=== PATIENT | female | born 1955 | race Two or more races ===

== ENCOUNTER 2018-01-20 13:33 | Outpatient (CLI) | payer OTHER ==
[~2018-01-20 13:33] MED LIST: APRESOLINE; AVAPRO300 MG; HYDROCHLOROTHIA25 GM; METOPROLOL SUC200 MG; XANAX0.25 MG
== END 2018-01-20 13:44 | disposition home or self-care (01) ==
LOC: SONOGRAMA 13:33
DX: R31.29 Other microscopic hematuria (principal)

== ENCOUNTER 2018-07-18 12:59 | Outpatient (CLI) | payer OTHER | END 2018-07-18 13:03 | disposition home or self-care (01) | LOC: SONOGRAMA 12:59 | DX: E04.8 Other specified nontoxic goiter (principal) ==

== ENCOUNTER 2018-08-15 10:03 | Inpatient (IN) | payer OTHER ==
[~2018-08-15] VITALS: Ht 175.3 cm; Wt 80.7 kg
[2018-08-15] MEDS ORDERED: METOPROLOL SUC100 MG PO (10:44)
[2018-08-19] MEDS ORDERED: FLAGYL500MG PO (16:48)
[2018-08-19] MEDS ORDERED: AMOX-CLAV 875-1 EACH PO (16:48)
== END 2018-08-19 16:50 | disposition home or self-care (01) | DRG 378 ==
LOC: ER 10:03 → MEDJ 20:48 → SEC-K 20:48 → MEDJ 08-16 00:04
PROC: BW25Y0Z Computerized Tomography (CT Scan) of Chest, Abdomen and Pelvis using Other Contrast, Unenhanced and Enhanced (ICD-10-PCS; principal; 2018-08-15)
DX: K57.33 Diverticulitis of large intestine without perforation or abscess with bleeding (principal); K51.511 Left sided colitis with rectal bleeding; I10 Essential (primary) hypertension; F41.8 Other specified anxiety disorders

== ENCOUNTER 2018-10-27 14:43 | Outpatient (CLI) | payer OTHER ==
[~2018-10-27 14:43] MED LIST changes: +AMOX-CLAV 875-1 EACH PO; +FLAGYL500MG PO; +METOPROLOL SUC100 MG PO
== END 2018-10-27 15:00 | disposition home or self-care (01) ==
LOC: LAB 14:43
DX: N20.0 Calculus of kidney (principal)

== ENCOUNTER 2018-11-21 13:38 | Outpatient (CLI) | payer OTHER | END 2018-11-21 13:52 | disposition home or self-care (01) | LOC: MAMO-SONO 13:38 | DX: Z12.31 Encounter for screening mammogram for malignant neoplasm of breast (principal); Z87.898 Personal history of other specified conditions; N64.59 Other signs and symptoms in breast ==

== ENCOUNTER 2018-12-02 09:22 | Day surgery (SDC) | payer OTHER | END 2018-12-02 14:00 | disposition home or self-care (01) | LOC: AMB-ENDOS 09:22 | DX: K64.2 Third degree hemorrhoids (principal) ==

== ENCOUNTER 2019-01-11 06:10 | Day surgery (SDC) | payer OTHER ==
[~2019-01-11 06:10] MED LIST changes: +SYNTH PO; +VALSART PO; +XANAX0.25 MG PO; +[UNRECOGNIZED DRUG - OTHER] PO
== END 2019-01-11 16:05 | disposition home or self-care (01) ==
LOC: CIR.AMB 06:10
DX: K64.8 Other hemorrhoids (principal)

== ENCOUNTER 2019-02-21 13:20 | Outpatient (CLI) | payer OTHER | END 2019-02-21 13:24 | disposition home or self-care (01) | LOC: MRI 13:20 | DX: M51.26 Other intervertebral disc displacement, lumbar region (principal) | CPT/HCPCS: 72148 ==

== ENCOUNTER 2019-11-17 13:08 | Outpatient (CLI) | payer OTHER | END 2019-11-17 14:15 | disposition home or self-care (01) | LOC: RAD 13:08 | DX: M10.071 Idiopathic gout, right ankle and foot (principal); M10.072 Idiopathic gout, left ankle and foot ==

== ENCOUNTER 2020-04-03 14:06 | Outpatient (CLI) | payer OTHER | END 2020-04-03 14:12 | disposition home or self-care (01) | LOC: MAMO-SONO 14:06 | PROVIDERS: ATTEND Specialist | DX: Z12.31 Encounter for screening mammogram for malignant neoplasm of breast (principal) ==

== ENCOUNTER 2020-04-10 13:10 | Outpatient (CLI) | payer OTHER | END 2020-04-10 13:21 | disposition home or self-care (01) | LOC: TOM 13:10 | PROVIDERS: ATTEND Specialist | DX: R51 Headache (principal) ==

== ENCOUNTER 2021-07-10 11:07 | Outpatient (CLI) | payer OTHER | END 2021-07-10 11:23 | disposition home or self-care (01) | LOC: MAMO-SONO 11:07 | PROVIDERS: ATTEND Specialist | DX: R92.0 Mammographic microcalcification found on diagnostic imaging of breast (principal); Z12.31 Encounter for screening mammogram for malignant neoplasm of breast; N64.89 Other specified disorders of breast; E04.1 Nontoxic single thyroid nodule ==

== ENCOUNTER 2021-11-26 12:48 | Outpatient (CLI) | payer OTHER | END 2021-11-26 12:51 | disposition home or self-care (01) | LOC: SONOGRAMA 12:48 | PROVIDERS: ATTEND Specialist | DX: E27.49 Other adrenocortical insufficiency (principal) ==

== ENCOUNTER 2022-10-19 09:08 | Outpatient (CLI) | payer OTHER | END 2022-10-19 09:40 | disposition home or self-care (01) | LOC: TOM 09:08 | PROVIDERS: ATTEND Internal Medicine Gastroenterology | DX: R97.0 Elevated carcinoembryonic antigen [CEA] (principal) ==

== ENCOUNTER → 2022-11-17 12:43 | Outpatient (CLI) | payer OTHER | END | disposition home or self-care (01) | LOC: LAB 12:43 | PROVIDERS: ATTEND Internal Medicine Geriatric Medicine | DX: D68.8 Other specified coagulation defects (principal) ==

== ENCOUNTER 2023-04-05 13:35 | Outpatient (CLI) | payer OTHER | END 2023-04-05 13:36 | disposition home or self-care (01) | LOC: NUCLEAR 13:35 | PROVIDERS: ATTEND Internal Medicine Hematology & Oncology | DX: I70.213 Atherosclerosis of native arteries of extremities with intermittent claudication, bilateral legs (principal) ==

== ENCOUNTER 2023-05-19 08:51 | Outpatient (CLI) | payer OTHER | END 2023-05-19 08:52 | disposition home or self-care (01) | LOC: LAB 08:51 | PROVIDERS: ATTEND Internal Medicine Hematology & Oncology | DX: D50.8 Other iron deficiency anemias (principal); R79.9 Abnormal finding of blood chemistry, unspecified; I10 Essential (primary) hypertension; R74.02 Elevation of levels of lactic acid dehydrogenase [LDH]; K76.89 Other specified diseases of liver; D68.8 Other specified coagulation defects; D69.1 Qualitative platelet defects; D68.312 Antiphospholipid antibody with hemorrhagic disorder; C50.919 Malignant neoplasm of unspecified site of unspecified female breast; R97.8 Other abnormal tumor markers; C25.9 Malignant neoplasm of pancreas, unspecified; C56.9 Malignant neoplasm of unspecified ovary; R97.1 Elevated cancer antigen 125 [CA 125]; R97.0 Elevated carcinoembryonic antigen [CEA]; E89.0 Postprocedural hypothyroidism; E06.3 Autoimmune thyroiditis; F41.3 Other mixed anxiety disorders; F41.1 Generalized anxiety disorder; I70.213 Atherosclerosis of native arteries of extremities with intermittent claudication, bilateral legs ==

== ENCOUNTER 2023-08-25 12:11 | Outpatient (CLI) | payer OTHER | END 2023-08-25 12:20 | disposition home or self-care (01) | LOC: SONOGRAMA 12:11 | PROVIDERS: ATTEND Internal Medicine Endocrinology, Diabetes & Metabolism | DX: E89.0 Postprocedural hypothyroidism (principal); E04.8 Other specified nontoxic goiter; Z88.6 Allergy status to analgesic agent ==

== ENCOUNTER 2023-08-30 09:24 | Outpatient (CLI) | payer OTHER ==
[2023-08-30 10:10] LABS: PLATELET COUNT 305 K/uL (150-450); RED BLOOD COUNT 4.59 M/uL (4.00-6.00); RED CELL DISTRIBUTION WIDTH 13.6 % (11.5-14.5)
[2023-08-30 10:13] LABS: HEMOGLOBIN 15.8 g/dL (12.0-15.00); MEAN CORPUSCULAR HEMOGLOBIN 34.4 pg (27.00-32.0)
[2023-08-30 10:37] LABS: BILIRUBIN TOTAL 0.83 mg/dL (0.3-1.2); CALCIUM 9.8 mg/dL (8.5-10.1); CREATININE SERUM 1.57 mg/dL (0.55-1.02); GFR 32.86; GLOBULINA 4.4 G/DL (2.4-3.5); POTASSIUM 3.27 mEq/L (3.5-5.1); TOTAL PROTEIN 8.4 gm/dL (6.4-8.2)
[2023-08-30 13:44] LABS: FOLIC ACID 13.61 ng/ml (4.78-20)
[2023-08-30 14:00] LABS: MANUAL PLATELET COUNT 358
[2023-08-30 14:01] LABS: PLATELET ESTIMATE NORMAL (NORMAL)
== END 2023-08-30 09:25 | disposition home or self-care (01) ==
LOC: LAB 09:24
PROVIDERS: ATTEND Internal Medicine Hematology & Oncology
DX: D50.8 Other iron deficiency anemias (principal); R79.9 Abnormal finding of blood chemistry, unspecified; I10 Essential (primary) hypertension; R74.02 Elevation of levels of lactic acid dehydrogenase [LDH]; K76.89 Other specified diseases of liver; D51.8 Other vitamin B12 deficiency anemias; R97.0 Elevated carcinoembryonic antigen [CEA]; D68.62 Lupus anticoagulant syndrome; E89.0 Postprocedural hypothyroidism; E06.3 Autoimmune thyroiditis; F41.3 Other mixed anxiety disorders; F41.1 Generalized anxiety disorder; I70.213 Atherosclerosis of native arteries of extremities with intermittent claudication, bilateral legs; Z88.6 Allergy status to analgesic agent

== ENCOUNTER 2023-12-30 08:49 | Outpatient (CLI) | payer OTHER ==
[2023-12-30 10:36] LABS: HEMATOCRIT 42.1 % (36.0-45.00); HEMOGLOBIN 14.5 g/dL (12.0-15.00); MEAN CELL VOLUME 95.7 fL (80.00-100.00); MEAN CORPUSCULAR HEMOGLOBIN 32.9 pg (27.00-32.0); MEAN CORPUSCULAR HGB CONC 34.4 g/dl (32.0-36.0); PLATELET COUNT 252 K/uL (150-450); RED CELL DISTRIBUTION WIDTH 13.9 % (11.5-14.5)
[2023-12-30 11:08] LABS: BILIRUBIN TOTAL 0.44 mg/dL (0.3-1.2); CALCIUM 9.8 mg/dL (8.5-10.1); CREATININE SERUM 1.06 mg/dL (0.55-1.02); GFR 51.55; GLOBULINA 3.8 G/DL (2.4-3.5); POTASSIUM 3.79 mEq/L (3.5-5.1); TOTAL PROTEIN 7.8 gm/dL (6.4-8.2)
[2023-12-30 12:05] LABS: FOLIC ACID 4.89 ng/ml (4.78-20)
[2023-12-31 16:47] LABS: MANUAL PLATELET COUNT 520
[2023-12-31 16:49] LABS: PLATELET ESTIMATE INCREASED (NORMAL)
== END 2023-12-30 08:50 | disposition home or self-care (01) ==
LOC: LAB 08:49
PROVIDERS: ATTEND Internal Medicine Hematology & Oncology
DX: D68.62 Lupus anticoagulant syndrome (principal); I10 Essential (primary) hypertension; E89.0 Postprocedural hypothyroidism; E06.3 Autoimmune thyroiditis; F41.3 Other mixed anxiety disorders; R41.1 Anterograde amnesia; I70.213 Atherosclerosis of native arteries of extremities with intermittent claudication, bilateral legs; D50.8 Other iron deficiency anemias; R79.9 Abnormal finding of blood chemistry, unspecified; R74.02 Elevation of levels of lactic acid dehydrogenase [LDH]; K76.89 Other specified diseases of liver; R97.0 Elevated carcinoembryonic antigen [CEA]; R97.8 Other abnormal tumor markers

== ENCOUNTER 2024-05-16 08:28 | Outpatient (CLI) | payer OTHER ==
[~2024-05-16 08:28] MED LIST changes: +SYNTHROID175 MCG PO
[2024-05-16 09:24] LABS: PH,URINE 6.5 (5.0-8.0); URINE APPEARANCE Clear; URINE BILIRRUBIN Negative (NEGATIVE); URINE BLOOD Small; URINE COLOR Yellow; URINE GLUCOSE Negative (NEGATIVE); URINE KETONE Negative (NEGATIVE); URINE LEUKOCYTE Negative; URINE NITRATE Negative; URINE PROTEIN Negative (NEGATIVE); URINE UROBILINOGEN 0.2 E.U./dl
[2024-05-16 09:28] LABS: URINE EPITHELIAL CELLS 12.6 uL (0.0-38.8); URINE RBC 36.4 uL (0.0-20.8); URINE WBC 7.2 uL (0.0-23.2)
[2024-05-16 09:35] LABS: HEMATOCRIT 40.7 % (36.0-45.00); HEMOGLOBIN 14.3 g/dL (12.0-15.00); MEAN CELL VOLUME 96.7 fL (80.00-100.00); MEAN CORPUSCULAR HEMOGLOBIN 34.1 pg (27.00-32.0); MEAN CORPUSCULAR HGB CONC 35.2 g/dl (32.0-36.0); PLATELET COUNT 252 K/uL (150-450); RED BLOOD COUNT 4.21 M/uL (4.00-6.00); RED CELL DISTRIBUTION WIDTH 14.1 % (11.5-14.5)
[2024-05-16 09:45] LABS: INR 0.95; PARTIAL THROMBOPLASTIN TIME 34.8 SECONDS (22.0-34.0)
[2024-05-16 12:02] LABS: ALBUMIN 4.1 gm/dL (3.4-5.0); BILIRUBIN TOTAL 0.46 mg/dL (0.3-1.2); CALCIUM 9.4 mg/dL (8.5-10.1); CREATININE SERUM 1.01 mg/dL (0.55-1.02); GFR 54.51; GLOBULINA 3.9 G/DL (2.4-3.5); POTASSIUM 3.91 mEq/L (3.5-5.1)
== END 2024-05-16 08:29 | disposition home or self-care (01) ==
LOC: LAB 08:28
PROVIDERS: ATTEND Surgery
DX: Z03.818 Encounter for observation for suspected exposure to other biological agents ruled out (principal); Z20.822 Contact with and (suspected) exposure to COVID-19; K56.600 Partial intestinal obstruction, unspecified as to cause; K56.690 Other partial intestinal obstruction; K57.30 Diverticulosis of large intestine without perforation or abscess without bleeding; R14.0 Abdominal distension (gaseous); R10.32 Left lower quadrant pain; R97.0 Elevated carcinoembryonic antigen [CEA]

== ENCOUNTER 2024-05-16 09:21 | Outpatient (CLI) | payer OTHER | END 2024-05-16 09:34 | disposition home or self-care (01) | LOC: MRI 09:21 | PROVIDERS: ATTEND Anesthesiology | DX: M54.50 Low back pain, unspecified (principal) | CPT/HCPCS: 72148 ==

== ENCOUNTER 2024-06-16 16:02 | Inpatient (IN) | payer OTHER ==
[~2024-06-16] VITALS: Ht 175.3 cm; Wt 76.2 kg
[2024-06-16] MEDS ORDERED: FAMOtidine 10 MG/ML (4ML VIAL) IV ONE (17:15)
[2024-06-16] MEDS ORDERED: 0.9 % SODIUM CHLORIDE 1,000 ML IV ONE (17:15)
[2024-06-16] MEDS ORDERED: FAMOTIDINE/PF 20 MG/2 ML VIAL ONE (17:18)
[2024-06-16 18:13] LABS: HEMATOCRIT 36.5 % (36.0-45.00); HEMOGLOBIN 12.9 g/dL (12.0-15.00); MEAN CORPUSCULAR HGB CONC 35.4 g/dl (32.0-36.0); PLATELET COUNT 392 K/uL (150-450); RED CELL DISTRIBUTION WIDTH 14.4 % (11.5-14.5)
[2024-06-16 18:17] LABS: ABG PH 7.468 (7.35-7.45); ABG PO2 104.7 mmHg (80-100); ABG pCO2 35.7 mmHg (35-45); BICARBONATE 25.3 mmol/l (23-25); SaO2 98.4 %; Tco2 26.4 mmol/l
[2024-06-16 18:17] LABS: ERYTHROCYTE SEDIMENTATION RATE 23 mm/hr
[2024-06-16 18:43] LABS: D DIMER 4.74 MG/L; INR 1.07; PROTHROMBIN TIME 11.6 SECONDS (9.0-11.5)
[2024-06-16 18:47] LABS: PARTIAL THROMBOPLASTIN TIME 39.1 SECONDS (22.0-34.0)
[2024-06-16 18:55] LABS: ALBUMIN 3.3 gm/dL (3.4-5.0); BILIRUBIN TOTAL 0.73 mg/dL (0.3-1.2); CALCIUM 9.5 mg/dL (8.5-10.1); CREATININE SERUM 1.24 mg/dL (0.55-1.02); GFR 43.02; GLOBULINA 4.5 G/DL (2.4-3.5); POTASSIUM 4.04 mEq/L (3.5-5.1); TOTAL PROTEIN 7.8 gm/dL (6.4-8.2)
[2024-06-16 20:04] LABS: allen test SATISFACTORY; o2 21 %; puncture site RADIAL RIGHT
[2024-06-16] MEDS ORDERED: LEVOTHYROXINE SODIUM 100 MCG TABLET PO SCH (20:15)
[2024-06-16] MEDS ORDERED: LEVOTHYROXINE SODIUM 88 MCG TABLET PO SCH (20:15)
[2024-06-16 21:44] VITALS: BP 100/60; O2SAT 98
[2024-06-16 21:59] LABS: PH,URINE 5.5 (5.0-8.0); URINE APPEARANCE Clear; URINE BILIRRUBIN Negative (NEGATIVE); URINE BLOOD Negative; URINE COLOR Yellow; URINE GLUCOSE Negative (NEGATIVE); URINE KETONE Negative (NEGATIVE); URINE LEUKOCYTE Negative; URINE NITRATE Negative; URINE PROTEIN Trace (NEGATIVE); URINE UROBILINOGEN 0.2 E.U./dl
[2024-06-16 22:00] LABS: URINE BACTERIA 525.3 uL (0.0-1933); URINE EPITHELIAL CELLS 16.2 uL (0.0-38.8); URINE RBC 13.4 uL (0.0-20.8); URINE WBC 10.1 uL (0.0-23.2)
[2024-06-16 22:07] LABS: URINE CAST 0.91 uL (0.0-1.40)
[2024-06-17 01:07] VITALS: BP 141/69; O2SAT 100
[2024-06-17] MEDS ORDERED: PIPERACILLIN/TAZOBACTAM SODIUM 3.375 GM in 0.9 % SODIUM CHLORIDE 100 ML IV SCH (06:00)
[2024-06-17] MEDS ORDERED: RINGERS SOLUTION,LACTATED 500 ML IV ONE (06:30)
[2024-06-17] MEDS ORDERED: RINGERS SOLUTION,LACTATED 1,000 ML IV SCH (06:30)
[2024-06-17 08:00] VITALS: BP 70/41; O2SAT 99
[2024-06-17 08:20] LABS: HEMATOCRIT 35.2 % (36.0-45.00); HEMOGLOBIN 12.2 g/dL (12.0-15.00); MEAN CELL VOLUME 96.7 fL (80.00-100.00); MEAN CORPUSCULAR HEMOGLOBIN 33.6 pg (27.00-32.0); MEAN CORPUSCULAR HGB CONC 34.8 g/dl (32.0-36.0); PLATELET COUNT 317 K/uL (150-450); RED BLOOD COUNT 3.64 M/uL (4.00-6.00); RED CELL DISTRIBUTION WIDTH 14.3 % (11.5-14.5)
[2024-06-17 08:31] LABS: ALBUMIN 2.9 gm/dL (3.4-5.0); BILIRUBIN TOTAL 0.91 mg/dL (0.3-1.2); CREATININE SERUM 1.1 mg/dL (0.55-1.02); GFR 49.39; GLOBULINA 4.1 G/DL (2.4-3.5); POTASSIUM 3.97 mEq/L (3.5-5.1)
[2024-06-17] MEDS ORDERED: METOPROLOL SUCCINATE 100 MG TAB.SR.24H PO SCH (09:00)
[2024-06-17 10:00] VITALS: BP 120/70; O2SAT 99
[2024-06-17] MEDS ORDERED: LEVOTHYROXINE SODIUM PO NR (11:45)
[2024-06-17 16:00] VITALS: BP 123/73; O2SAT 95
[2024-06-17] MEDS ORDERED: METOPROLOL SUCCINATE 50 MG TAB.SR.24H PO SCH (17:00)
[2024-06-17] MEDS ORDERED: ENOXAPARIN SODIUM 40 MG/0.4 ML SYRINGE SUBCUTANEO STA (17:22)
[2024-06-17] MEDS ORDERED: LEVALBUTEROL HCL 0.63 MG/3 ML SOLUTION IH SCH (18:00)
[2024-06-17 20:00] VITALS: BP 129/77; O2SAT 93
[2024-06-17 20:09] VITALS: BP 148/74; O2SAT 95
[2024-06-17] MEDS ORDERED: VANCOMYCIN HCL 1,000 MG VIAL IV SCH (21:00)
[2024-06-18 00:49] VITALS: BP 134/68; O2SAT 97
[2024-06-18] MEDS ORDERED: LEVOTHYROXINE SODIUM PO SCH (06:00)
[2024-06-18] MEDS ORDERED: PIPERACILLIN/TAZOBACTAM SODIUM 3.375 GM VIAL IV ONE (07:48)
[2024-06-18 08:00] VITALS: BP 119/67; O2SAT 94
[2024-06-18] MEDS ORDERED: SODIUM CL 0.9% 100 ML IV.SOLN IV ONE (08:21)
[2024-06-18 08:28] LABS: HEMOGLOBIN 10.9 g/dL (12.0-15.00); MEAN CELL VOLUME 97.6 fL (80.00-100.00); MEAN CORPUSCULAR HEMOGLOBIN 33.7 pg (27.00-32.0); MEAN CORPUSCULAR HGB CONC 34.5 g/dl (32.0-36.0); PLATELET COUNT 262 K/uL (150-450); RED BLOOD COUNT 3.24 M/uL (4.00-6.00); RED CELL DISTRIBUTION WIDTH 13.9 % (11.5-14.5)
[2024-06-18 09:29] LABS: ALBUMIN 2.6 gm/dL (3.4-5.0); BILIRUBIN TOTAL 1.1 mg/dL (0.3-1.2); CALCIUM 8.1 mg/dL (8.5-10.1); CREATININE SERUM 0.9 mg/dL (0.55-1.02); GFR 62.26; GLOBULINA 3.7 G/DL (2.4-3.5); MAGNESIUM 1.9 mg/dL (1.8-2.4); PHOSPHOROUS 3.1 mg/dL (2.5-4.9); POTASSIUM 3.41 mEq/L (3.5-5.1); TOTAL PROTEIN 6.3 gm/dL (6.4-8.2)
[2024-06-18 09:31] LABS: TSH 8.14 uIU/mL (0.358-3.74)
[2024-06-18] MEDS ORDERED: POTASSIUM CHLORIDE 20MEQ/100ML H2O PB IV NR (13:53)
[2024-06-18 16:00] VITALS: BP 123/70; O2SAT 96
[2024-06-18] MEDS ORDERED: ENOXAPARIN SODIUM 40 MG/0.4 ML SYRINGE SUBCUTANEO SCH (17:00)
[2024-06-19 00:23] VITALS: BP 133/79; O2SAT 95
[2024-06-19] MEDS ORDERED: LEVOTHYROXINE SODIUM 200 MCG TABLET PO SCH (06:00)
[2024-06-19] MEDS ORDERED: SYNTHROID 200 MCG PO SCH (06:00)
[2024-06-19 08:00] VITALS: BP 91/68; O2SAT 97
[2024-06-19] MEDS ORDERED: VITAMIN B COMPLEX 1 EACH PO SCH (09:00)
[2024-06-19] MEDS ORDERED: Cyanocobalamin/Mecobalamin 1 TAB.SL SL SCH (09:00)
[2024-06-19] MEDS ORDERED: MULTIVIT-MIN/IRON FUM/FOLIC AC 1 TAB TABLET PO SCH (09:00)
[2024-06-19 16:43] VITALS: BP 143/64; O2SAT 97
[2024-06-20 01:30] VITALS: BP 130/70; O2SAT 96
[2024-06-20 07:53] VITALS: BP 160/75; O2SAT 95
[2024-06-20 08:04] LABS: HEMATOCRIT 30.7 % (36.0-45.00); HEMOGLOBIN 10.6 g/dL (12.0-15.00); MEAN CELL VOLUME 96.1 fL (80.00-100.00); MEAN CORPUSCULAR HEMOGLOBIN 33.1 pg (27.00-32.0); MEAN CORPUSCULAR HGB CONC 34.4 g/dl (32.0-36.0); PLATELET COUNT 259 K/uL (150-450)
[2024-06-20] MEDS ORDERED: GABAPENTIN 100 MG CAPSULE PO SCH (09:00)
[2024-06-20 09:05] LABS: CALCIUM 8.5 mg/dL (8.5-10.1); CREATININE SERUM 0.93 mg/dL (0.55-1.02); GFR 59.95; MAGNESIUM 1.7 mg/dL (1.8-2.4); PHOSPHOROUS 3.3 mg/dL (2.5-4.9); POTASSIUM 3.41 mEq/L (3.5-5.1)
[2024-06-20 09:09] LABS: FERRITIN 313.1 NG/ML (8-252)
[2024-06-20 11:18] LABS: FOLIC ACID 4.93 ng/ml (4.78-20)
[2024-06-20] MEDS ORDERED: DEXTROSE 5 % IN WATER 1,000 ML IV SCH (11:45)
[2024-06-20] MEDS ORDERED: POTASSIUM CHLORIDE 20MEQ/100ML H2O PB IV NR (11:48)
[2024-06-20] MEDS ORDERED: MAGNESIUM SULFATE IN WATER 50 ML IV NR (11:48)
[2024-06-20] MEDS ORDERED: METOPROLOL SUCCINATE 100 MG TAB.SR.24H PO SCH (12:00)
[2024-06-20] MEDS ORDERED: CIPROFLOXACIN IN 5 % DEXTROSE 400 MG/200 ML PIGGYBAG IV SCH (13:00)
[2024-06-20] MEDS ORDERED: DIPHENHYDRAMINE HCL 50 MG/ML VIAL 1ML IV STA (13:49)
[2024-06-20 16:35] VITALS: BP 159/71; O2SAT 98
[2024-06-20] MEDS ORDERED: METOPROLOL SUCCINATE 50 MG TAB.SR.24H PO SCH (17:00)
[2024-06-20] MEDS ORDERED: CEFEPIME HCL 2,000 MG in 0.9 % SODIUM CHLORIDE 100 ML IV SCH (21:00)
[2024-06-21] VITALS: BP 150/84; O2SAT 96
[2024-06-21 08:00] VITALS: BP 140/74; O2SAT 96
[2024-06-21] MEDS ORDERED: levoFLOXacin 750 MG TABLET PO SCH (12:37)
[2024-06-21 16:43] VITALS: BP 149/75; O2SAT 98
[2024-06-22] VITALS: BP 158/84; O2SAT 96
[2024-06-22 08:00] VITALS: BP 124/70; O2SAT 97
[2024-06-22] MEDS ORDERED: SYNTHROID200 MCG PO (13:45)
[2024-06-22] MEDS ORDERED: ABANEU-SL TABL1 EACH SL (13:45)
[2024-06-22] MEDS ORDERED: TOPROL XL100 M1 PO (13:45)
[2024-06-22] MEDS ORDERED: LEVOFLOXACIN750 MG PO (13:45)
[2024-06-22] MEDS ORDERED: TOPROL XL50 M1 PO (13:45)
[2024-06-22] MEDS ORDERED: MULTIVITAMIN-M1 EACH PO (13:45)
== END 2024-06-22 15:13 | disposition home or self-care (01) | DRG 872 ==
LOC: ER 16:03 → SURH 21:01
PROVIDERS: General Practice; Internal Medicine Endocrinology, Diabetes & Metabolism; Internal Medicine Geriatric Medicine; ADMIT Surgery; ATTEND Surgery
PROC: BW28ZZZ Computerized Tomography (CT Scan) of Head (ICD-10-PCS; principal; 2024-06-16)
PROC: BW21YZZ Computerized Tomography (CT Scan) of Abdomen and Pelvis using Other Contrast (ICD-10-PCS; 2024-06-16)
PROC: BW24ZZZ Computerized Tomography (CT Scan) of Chest and Abdomen (ICD-10-PCS; 2024-06-17)
PROC: 02HV33Z Insertion of Infusion Device into Superior Vena Cava, Percutaneous Approach (ICD-10-PCS; 2024-06-17)
PROC: BW24YZZ Computerized Tomography (CT Scan) of Chest and Abdomen using Other Contrast (ICD-10-PCS; 2024-06-18)
DX: A41.9 Sepsis, unspecified organism (principal); D68.62 Lupus anticoagulant syndrome; J20.9 Acute bronchitis, unspecified; E86.0 Dehydration; I95.9 Hypotension, unspecified; D64.9 Anemia, unspecified; I10 Essential (primary) hypertension; E03.9 Hypothyroidism, unspecified; M60.9 Myositis, unspecified; F17.210 Nicotine dependence, cigarettes, uncomplicated

== ENCOUNTER 2024-09-12 14:40 | Outpatient (CLI) | payer OTHER ==
[~2024-09-12 14:40] MED LIST changes: +ABANEU-SL TABL1 EACH SL; +LEVOFLOXACIN750 MG PO; +MULTIVITAMIN-M1 EACH PO; +SYNTHROID200 MCG PO; +TOPROL XL100 M1 PO; +TOPROL XL50 M1 PO
== END 2024-09-12 14:48 | disposition home or self-care (01) ==
LOC: RAD 14:40
PROVIDERS: ATTEND Physical Medicine & Rehabilitation
DX: M79.671 Pain in right foot (principal); M79.672 Pain in left foot

== ENCOUNTER 2024-09-18 13:05 | Outpatient (CLI) | payer OTHER | END 2024-09-18 13:12 | disposition home or self-care (01) | LOC: MAMO-SONO 13:05 | PROVIDERS: ATTEND Internal Medicine Geriatric Medicine | DX: Z12.31 Encounter for screening mammogram for malignant neoplasm of breast (principal); N63.0 Unspecified lump in unspecified breast; N64.4 Mastodynia; N60.12 Diffuse cystic mastopathy of left breast; N60.11 Diffuse cystic mastopathy of right breast ==

== ENCOUNTER 2024-12-13 13:04 | Outpatient (CLI) | payer OTHER ==
[2024-12-13] MEDS ORDERED: COZAAR50 MG PO (14:26)
== END 2024-12-13 13:05 | disposition home or self-care (01) ==
LOC: NUCLEAR 13:04
PROVIDERS: ATTEND Internal Medicine Endocrinology, Diabetes & Metabolism
DX: M81.0 Age-related osteoporosis without current pathological fracture (principal)

== ENCOUNTER 2024-12-13 13:56 | Emergency (ER) | payer OTHER ==
[~2024-12-13] VITALS: Ht 170.2 cm; Wt 73.5 kg
[2024-12-13] MEDS ORDERED: COZAAR50 MG PO (14:26)
[2024-12-13] MEDS ORDERED: LEVALBUTEROL HCL 1.25 MG/3 ML SOLUTION IH STA (15:13)
[2024-12-13] MEDS ORDERED: BUDESONIDE 0.5 MG/2 ML AMPUL.NEB IH STA (15:14)
[2024-12-13] MEDS ORDERED: HYDROCODONE/CHLORPHEN P-STIREX 5 ML ML PO STA (15:15)
[2024-12-13] MEDS ORDERED: METHYLPREDNISOLONE SOD SUCC 125 MG VIAL IV STA (15:16)
[2024-12-13 16:10] LABS: HEMATOCRIT 43.4 % (36.0-45.00); MEAN CORPUSCULAR HEMOGLOBIN 33.1 pg (27.00-32.0); MEAN CORPUSCULAR HGB CONC 34.5 g/dl (32.0-36.0); PLATELET COUNT 273 K/uL (150-450); RED BLOOD COUNT 4.52 M/uL (4.00-6.00); RED CELL DISTRIBUTION WIDTH 14.6 % (11.5-14.5)
== END 2024-12-13 18:15 | disposition home or self-care (01) ==
LOC: ER 13:59
PROVIDERS: General Practice
DX: R53.81 Other malaise (principal); R05.9 Cough, unspecified; Z20.822 Contact with and (suspected) exposure to COVID-19; E03.8 Other specified hypothyroidism; Z88.6 Allergy status to analgesic agent
CPT/HCPCS: 36415; 71046; 94640; 96365; 99283; J3490

== ENCOUNTER 2024-12-23 05:07 | Emergency (ER) | payer OTHER ==
[~2024-12-23] VITALS: Ht 170.2 cm; Wt 75.3 kg
[~2024-12-23 05:07] MED LIST changes: +COZAAR50 MG PO
[2024-12-23] MEDS ORDERED: FLUMAZENIL 0.5 MG/5 ML ML IV STA (06:00)
[2024-12-23 06:30] LABS: HEMATOCRIT 41.7 % (36.0-45.00); HEMOGLOBIN 14.2 g/dL (12.0-15.00); MEAN CELL VOLUME 97.4 fL (80.00-100.00); MEAN CORPUSCULAR HEMOGLOBIN 33.3 pg (27.00-32.0); MEAN CORPUSCULAR HGB CONC 34.1 g/dl (32.0-36.0); PLATELET COUNT 247 K/uL (150-450); RED BLOOD COUNT 4.28 M/uL (4.00-6.00); RED CELL DISTRIBUTION WIDTH 15.1 % (11.5-14.5)
[2024-12-23] MEDS ORDERED: IPRATROPIUM/ALBUTEROL SULFATE 3 ML AMPUL.NEB IH STA (06:51)
[2024-12-23] MEDS ORDERED: CEFTRIAXONE SODIUM 2,000 MG VIAL IV STA (07:19)
== END 2024-12-23 08:32 | disposition home or self-care (01) ==
LOC: ER 05:07
DX: R53.81 Other malaise (principal); J45.991 Cough variant asthma; J06.9 Acute upper respiratory infection, unspecified; Z20.822 Contact with and (suspected) exposure to COVID-19; I10 Essential (primary) hypertension; E11.9 Type 2 diabetes mellitus without complications; Z88.6 Allergy status to analgesic agent
CPT/HCPCS: 36415; 71045; 94640; 96365; 99283; J0696; J3490

== ENCOUNTER 2025-03-09 12:06 | Outpatient (CLI) | payer OTHER | END 2025-03-09 12:25 | disposition home or self-care (01) | LOC: MRI 12:06 | PROVIDERS: ATTEND Neuromusculoskeletal Medicine & OMM | DX: I72.9 Aneurysm of unspecified site (principal); F09 Unspecified mental disorder due to known physiological condition; F03.90 Unspecified dementia, unspecified severity, without behavioral disturbance, psychotic disturbance, mood disturbance, and anxiety | CPT/HCPCS: 70544; 70551 ==

== ENCOUNTER 2025-07-17 13:23 | Emergency (ER) | payer OTHER ==
[~2025-07-17] VITALS: Ht 162.6 cm; Wt 79.8 kg
[2025-07-17] MEDS ORDERED: ACETAMINOPHEN 325 MG TABLET PO ONE (15:30)
[2025-07-17] MEDS ORDERED: 0.9 % SODIUM CHLORIDE 1,000 ML IV ONE (15:30)
[2025-07-17] MEDS ORDERED: GUAIFENESIN 100 MG/5 ML BLIST.PACK PO ONE (15:30)
[2025-07-17] MEDS ORDERED: ACETAMINOPHEN 500 MG GEL..CAP PO ONE (16:04)
[2025-07-17] MEDS ORDERED: GUAIFENESIN/DEXTROMETHORPHAN 100MG/10ML BLIST.PACK PO ONE (16:04)
[2025-07-17 16:54] LABS: BASO % 0.4 % (0.1-1.2); EOS # 0.14 (0.04-0.54); EOS % 1.0 % (0.7-7.0); LYMPH # 2.44 (1.18-3.74); LYMPH % 17.4 % (19.3-53.1); MEAN PLATELET VOLUME 10.00 fl (9.4-12.4); MONO # 1.20 (0.24-0.82); MONO % 8.6 % (4.7-12.5); NEUT # 10.12 (1.56-6.13); NEUT % 72.2 % (34.0-71.1); RED CELL DISTRIBUTION WIDTH 13.1 % (11.6-14.4)
[2025-07-17 17:09] LABS: ABG PH 7.446 (7.35-7.45); ABG PO2 86.7 mmHg (80-100); BICARBONATE 27.2 mmol/l (23-25)
[2025-07-17 17:17] LABS: o2 21 %
[2025-07-17 17:18] LABS: INR 1.04
[2025-07-17 17:24] LABS: ALT/SGPT 33.0 U/L (12-78); AST/SGOT 22.0 U/L (15-37); BILIRUBIN TOTAL 0.53 mg/dL (0.3-1.2); BUN CREA RATIO 24.0 (7.0-25.0); CREATININE SERUM 1.73 mg/dL (0.55-1.02); GFR 29.2; GLOBULINA 5.5 G/DL (2.4-3.5); GLUCOSE FASTING 109.0 mg/dL (65-100); OSMOLALITY SERUM 288.0 MOSM/KG (275-295)
[2025-07-17 17:56] LABS: COVID-19 AG NEGATIVE (NEGATIVE)
[2025-07-17 20:46] LABS: URINE APPEARANCE Turbid; URINE BILIRRUBIN Small (NEGATIVE); URINE BLOOD Small; URINE COLOR Dark Yellow; URINE GLUCOSE Negative (NEGATIVE); URINE KETONE Trace (NEGATIVE); URINE LEUKOCYTE Small; URINE NITRATE Negative; URINE PROTEIN 30 (NEGATIVE); URINE UROBILINOGEN 1.0 E.U./dl
[2025-07-17 20:49] LABS: URINE BACTERIA 1369.1 uL (0.0-1933); URINE RBC 34.0 uL (0.0-20.8); URINE WBC 51.3 uL (0.0-23.2)
[2025-07-17 20:58] LABS: URINE CAST > 21.83 uL (0.0-1.40); URINE EPITHELIAL CELLS > 201.7 uL (0.0-38.8)
[2025-07-17 21:16] LABS: TYPE CELLS SQUAMOUS; URINE MUCUS SCANT
[2025-07-17] MEDS ORDERED: MACROBID 100 M100 MG PO (21:49)
[2025-07-17] MEDS ORDERED: CEFTRIAXONE SODIUM 1,000 MG VIAL ONE (21:52)
[2025-07-17] MEDS ORDERED: CEFTRIAXONE SODIUM 1,000 MG VIAL IM ONE (22:00)
== END 2025-07-17 22:14 | disposition home or self-care (01) ==
LOC: ER 13:23
DX: N39.0 Urinary tract infection, site not specified (principal); R05.9 Cough, unspecified; Z20.822 Contact with and (suspected) exposure to COVID-19; E03.8 Other specified hypothyroidism; Z88.6 Allergy status to analgesic agent
CPT/HCPCS: 36415; 71046; 82803; 93041; 96365; 96366; 96372; 99283; J0696; J7030

== ENCOUNTER → 2025-09-24 10:28 | Outpatient (CLI) | payer OTHER ==
[~2025-09-24 10:28] MED LIST changes: +MACROBID 100 M100 MG PO
== END | disposition home or self-care (01) ==
LOC: NUCLEAR 10:28
PROVIDERS: ATTEND Internal Medicine Geriatric Medicine
DX: I50.40 Unspecified combined systolic (congestive) and diastolic (congestive) heart failure (principal)

== ENCOUNTER 2025-09-25 12:26 | Outpatient (CLI) | payer OTHER | END 2025-09-25 12:28 | disposition home or self-care (01) | LOC: SONOGRAMA 12:26 | PROVIDERS: ATTEND Internal Medicine Geriatric Medicine | DX: M75.102 Unspecified rotator cuff tear or rupture of left shoulder, not specified as traumatic (principal) ==